=== PATIENT | female | born 1980 | race Caucasian/White ===

== ENCOUNTER 2021-01-26 12:33 | Emergency (ER) | payer OTHER ==
[~2021-01-26 12:33] MED LIST: ADVIL COLD & S1 EACH PO; AUGMENTIN 875-1 EACH PO; CLARITIN10 MG PO; FLAGYL500 MG PO; FLONASE 0.05% N16 GM
== END 2021-01-26 15:40 | disposition home or self-care (01) ==
LOC: ER1 12:33
DX: U07.1 COVID-19 (principal); J12.82 Pneumonia due to coronavirus disease 2019
CPT/HCPCS: 99284

== ENCOUNTER → 2021-07-18 | Outpatient (CLI) | payer BC | LOC: MAMO 07:51 | DX: Z12.31 Encounter for screening mammogram for malignant neoplasm of breast (principal) | CPT/HCPCS: 77063; 77067 ==

== ENCOUNTER → 2021-08-04 | Outpatient (CLI) | payer BC ==
[2021-08-04 09:54] LABS: HEMOGLOBIN 14.6 gm/dl (12.3-15.3); RED BLOOD COUNT 5.05 M/UL (4.00-5.10)
[2021-08-04 10:13] LABS: BUN/CREATININE RATIO 16 (0-10)
[2021-08-05 07:11] LABS: VITAMIN D, 25-HYDROXY 27.9 ng/mL (30.0-100.0)
[2021-08-05 08:14] LABS: LUTEINIZING HORMONE(LH) 18.9 mIU/mL (.); TESTOSTERONE, SERUM 38 ng/dL (8-60)
== END ==
LOC: LAB 09:32
PROVIDERS: Family Medicine
DX: R19.7 Diarrhea, unspecified (principal); R53.83 Other fatigue; L68.0 Hirsutism
CPT/HCPCS: 36415; 80053; 82607; 82670; 83002; 83921; 84403; 84443; 85025; 87045; 87046; 87177; 87209; 87449; 89055

== ENCOUNTER → 2021-09-01 | Outpatient (CLI) | payer BC ==
[2021-09-01 10:26] LABS: BUN/CREATININE RATIO 24 (0-10)
== END ==
LOC: LAB 09:09
PROVIDERS: Family Medicine
DX: L68.0 Hirsutism (principal)
CPT/HCPCS: 36415; 80048

== ENCOUNTER → 2022-01-26 | Outpatient (CLI) | payer BC ==
[2022-01-26 10:05] LABS: BUN/CREATININE RATIO 20 (0-10)
== END ==
LOC: LAB 08:58
PROVIDERS: Family Medicine
DX: Z00.00 Encounter for general adult medical examination without abnormal findings (principal)
CPT/HCPCS: 36415; 80053; 80061; 83036

== ENCOUNTER → 2022-01-27 | Outpatient (CLI) | payer BC | LOC: RAD 10:52 | DX: M54.50 Low back pain, unspecified (principal); M47.817 Spondylosis without myelopathy or radiculopathy, lumbosacral region | CPT/HCPCS: 72110 ==